=== PATIENT | female | born 1995 | race Caucasian/White ===

== ENCOUNTER 2021-05-15 09:42 | Emergency (ER) | payer OTHER ==
[~2021-05-15] VITALS: Ht 172.7 cm; Wt 110.6 kg
[2021-05-15] MEDS ORDERED: KETOROLAC 15 MG/ML VIAL. IVP ONE (10:15)
[2021-05-15] MEDS ORDERED: IV NORMAL SALINE 1000ML BAG 1,000 ML IV SCH (10:15)
[2021-05-15 10:22] LABS: BILIRUBIN,URINE NEGATIVE (NEG); CLARITY,URINE CLEAR; COLOR,URINE YELLOW; NITRITE,URINE NEGATIVE (NEG); PROTEIN,URINE NEGATIVE (NEG-TRACE); UROBILINOGEN,URINE 0.2 mg/dL (0.2 mg/dL)
--- NOTE | 2021-05-15 10:22 | PHYS DOC ---
General Adult EDM: Chief Complaint: FLANK PAIN HPI: HPI: Patient is a 25 year old who presents with awoke at 4:00 this morning with right flank pain that sharp and shooting that radiates around to the right lower quadrant. She took a 500 mg naproxen earlier this morning. She states that she has vomited due to pain. She denies fever, urinary symptoms, headache, dizziness, blood in her urine, diarrhea, chest pain or shortness of air, anxiety, tremors, hallucinations, vision change, body aches. She has a history of alcoholism of which she is 2 weeks sober and was drinking 4 pints a day, depression, anxiety. ([facility],MARIE M CHEMISTRY TEACHER) Review of Systems: Review of Systems: Constitutional: Denies fever or chills. [] Eyes: Denies change in visual acuity. [] HENT: Denies nasal congestion or sore throat. [] Respiratory: Denies cough or shortness of breath. [] Cardiovascular: Denies chest pain or edema. [] GI: +Right lower abdominal pain, +nausea, +vomiting, denies bloody stools or diarrhea. [] : Denies dysuria. [] Musculoskeletal: +Right flank back pain or denies joint pain. [] Integument: Denies rash. [] Neurologic: Denies headache, focal weakness or sensory changes. [] Endocrine: Denies polyuria or polydipsia. [] Lymphatic: Denies swollen glands. [] Psychiatric: Denies depression or anxiety. [] ([facility] CHEMISTRY TEACHER) Heart Score: C/O Chest Pain: No ([facility] CHE[facility]Y [facility]) Physical Exam: PE: Constitutional: Well developed, well nourished, no acute distress, non-toxic appearance. [] HENT: Normocephalic, atraumatic, bilateral external ears normal, oropharynx moist, no oral exudates, nose normal. [] Eyes: PERRLA, EOMI, conjunctiva normal, no discharge. [] Neck: Normal range of motion, no tenderness, supple, no stridor. [] Cardiovascular:Heart rate regular rhythm, no murmur [] Lungs & Thorax: Bilateral breath sounds clear to auscultation [] Abdomen: Bowel sounds normal, soft, RLQ tenderness, no masses, no pulsatile masses. [] Skin: Warm, dry, no erythema, no rash. [] Back: No tenderness, right CVA tenderness. [] Extremities: No tenderness, no cyanosis, no clubbing, ROM intact, no edema. [] Neurologic: Alert and oriented X 3, normal motor function, normal sensory func tion, no focal deficits noted. [] Psychologic: Affect normal, judgement normal, mood normal. [] (MARIE CONWAY APRN) Current Patient Data: Labs: Laboratory Tests Test 05/15/21 10:08 POC Urine HCG, Qualitative Hcg negative (Negative) (MARIE CONWAY APRN) EKG: EKG: [] (MARIE CONWAY APRN) Radiology/Procedures: Radiology/Procedures: [] Impression: [facility] [address] [place] [address] IMAGING REPORT Signed PATIENT: MISAEL MADDEN LACCOUNT: [id number] : 1995 LOCATION: ER AGE: 25 SEX: F EXAM STATUS: REG ER ORD. PHYSICIAN: MARIE CONWAY APRN REASON: Right flank around to Right lower abdomen PROCEDURE: CT ABDOMEN PELVIS WO CONTRAST CT ABDOMEN+PELVIS WO History: Right flank pain around the right lower abdomen. Comparison: None. Technique: CT of the abdomen and pelvis without contrast. Findings: Mild dependent changes in the right lower lobe. No pleural effusion. The liver, gallbladder, pancreas, spleen, adrenal glands, and kidneys are un remarkable. There is no nephrolithiasis or hydronephrosis. The bladder, uterus and adnexa are unremarkable. Stomach, small bowel, appendix, and colon are normal. Unopacified abdominopelvic vasculature is within normal limits. No abdominopelvic adenopathy. No free fluid or free air. No acute osseous abnormality. The soft tissues are unremarkable. Impression: 1. No acute findings in the abdomen and pelvis. ------ Exposure: One or more of the following individualized dose reduction techniques were utilized for this examination: 1. Automated exposure control 2. Adjustment of the mA and/or kV according to patient size 3. Use of iterative reconstruction technique. Electronically signed by: Jorge Castelan MD (05/15/2021 10:53 AM) [id number] DICTATED and SIGNED BY: JORGE CASTELAN MD DATE: 05/15/21 [id number] (MARIE CONWAY APRN) Course & Med Decision Making: Course & Med Decision Making Pertinent Labs and Imaging studies reviewed. (See chart for details) See HPI. Alert and oriented x4. Ambulatory steady gait. Speaks in full clear sentences. Right lower quadrant tenderness with palpation. No rebound tenderness. Right CVA tenderness. Patient refusing Covid testing. Urinalysis shows UTI. [] (MARIE CONWAY APRN) Dragon Disclaimer: Dragon Disclaimer: This electronic medical record was generated, in whole or in part, using a voice recognition dictation system. (MARIE CONWAY APRN) Departure Departure Impression: Primary Impression: Urinary tract infection Qualified Codes: N39.0 - Urinary tract infection, site not specified Disposition: HOME / SELF CARE / HOMELESS Condition: STABLE Patient Instructions: Urinary Tract Infection Additional Instructions: Follow-up with primary care provider. Drink plenty of fluids. Take antibiotic as prescribed and with food. If begin running a high fever with worsening symptoms or cannot keep down fluids return emergency room. Scripts Cephalexin (KEFLEX) 500 Mg Capsule 1 CAP PO TID for 7 Days, #21 CAP Prov: MARIE CONWAY APRN 05/15/21 Attending Signature I have participated in the care of this patient and I have reviewed and agree with all pertinent clinical information above including history, exam, and recommendations. (JOSE JUAN NEW DO) MARIE CONWAY APRN May 15, 2021 10:22 JOSE JUAN NEW DO May 15, 2021 13:14
[2021-05-15 10:27] LABS: BACTERIA,URINE MODERATE /HPF (0-FEW); RBC,URINE OCC /HPF (0-2)
[2021-05-15 10:29] LABS: BASO % 1 % (0-3); EOS % 2 % (0-3); HEMATOCRIT 49.1 % (36.0-47.0); LYMPH # 0.5 x10^3/uL (1.0-4.8); LYMPH % 16 % (24-48); MEAN CORPUSCULAR HEMOGLOBIN 32 pg (25-35); MEAN CORPUSCULAR HGB CONC 35 g/dL (31-37); MEAN CORPUSCULAR VOLUME 94 fL (79-100); MONO # 0.6 x10^3/uL (0.0-1.1); MONO % 19 % (0-9); NEUT % 62 % (31-73); PLATELET COUNT 238 x10^3/uL (140-400); RED BLOOD COUNT 5.24 x10^6/uL (3.50-5.40); RED CELL DISTRIBUTION WIDTH 13.5 % (11.5-14.5); WHITE BLOOD COUNT 3.1 x10^3/uL (4.0-11.0)
[2021-05-15 10:38] VITALS: BP 133/88
[2021-05-15 10:39] LABS: CALCIUM 9.2 mg/dL (8.5-10.1); CREATININE 0.7 mg/dL (0.6-1.0); GFR 103.7; POTASSIUM 3.9 mmol/L (3.5-5.1)
[2021-05-15 10:45] LABS: ALBUMIN 4.5 g/dL (3.4-5.0); ALBUMIN/GLOBULIN RATIO 1.1 (1.0-1.7); TOTAL BILIRUBIN 0.3 mg/dL (0.2-1.0); TOTAL PROTEIN 8.6 g/dL (6.4-8.2)
[2021-05-15 10:53] LABS: % ATYL 2 % (0-0); % BASOS 1 % (0-3); % LYMPHS 16 % (24-48); % MONOS 10 % (0-10); % SEGS 71 % (35-66)
[2021-05-15 10:54] LABS: PLT ESTIMATE ADEQUATE (ADEQUATE)
--- NOTE | 2021-05-15 10:56 | RAD ---
CT ABDOMEN+PELVIS WO History: Right flank pain around the right lower abdomen. Comparison: None. Technique: CT of the abdomen and pelvis without contrast. Findings: Mild dependent changes in the right lower lobe. No pleural effusion. The liver, gallbladder, pancreas, spleen, adrenal glands, and kidneys are unremarkable. There is no n ephrolithiasis or hydronephrosis. The bladder, uterus and adnexa are unremarkable. Stomach, small bowel, appendix, and colon are normal. Unopacified abdominopelvic vasculature is within normal limits. No abdominopelvic adenopathy. No free fluid or free air. No acute osseous abnormality. The soft tissues are unremarkable. Impression: 1. No acute findings in the abdomen and pelvis. ------ Exposure: One or more of the following individualized dose reduction techniques were utilized for thi s examination: 1. Automated exposure control 2. Adjustment of the mA and/or kV according to patient size 3. Use of iterative reconstruction technique. Electronically signed by: Jorge Mcguire MD (05/15/2021 10:53 AM) [id number]
[2021-05-15] MEDS ORDERED: cefTRIAXone IV Push 1 GM VIAL. IVP ONE (11:30)
[2021-05-15] MEDS ORDERED: CEPH500C PO (11:33)
== END 2021-05-15 11:49 | disposition home or self-care (01) ==
LOC: ER 09:42
DX: N39.0 Urinary tract infection, site not specified (principal)
CPT/HCPCS: 36415; 74176; 80053; 81001; 81025; 85007; 85025; 87086; 96361; 96374; 96375; 99284; J0696; J1885; J7030